=== PATIENT | male | born 1990 | race Caucasian/White ===

== ENCOUNTER 2020-05-02 18:52 | Emergency (ER) | payer OTHER ==
[2020-05-02] MEDS ORDERED: ONDANSETRON HCL 4 MG/2 ML VIAL ONE (19:29)
[2020-05-02] MEDS ORDERED: MORPHINE SULFATE 2 MG/ML 1ML SYG ONE (19:30)
[2020-05-02] MEDS ORDERED: SODIUM CHLORIDE 0.9% 1000ML 1,000 ML IV ONE (19:30)
[2020-05-02 19:46] LABS: BASOPHILS % (AUTO) 0.4 % (0.0-5.0); EOSINOPHILS % (AUTO) 0.1 % (0.0-8.0); LYMPHOCYTES % (AUTO) 8.1 % (21.0-51.0); MEAN CORPUSCULAR HEMOGLOBIN 32.9 pg (27.0-33.0); MEAN CORPUSCULAR VOLUME 94.1 fL (79-99); NEUTROPHILS % (AUTO) 86.1 % (40.0-77.0); PLATELET COUNT (AUTO) 262 K/uL (130-400); RED BLOOD CELL COUNT(AUTO) 4.89 MIL/uL (4.50-6.20); RED CELL DISTRIBUTION WIDTH 11.8 % (11.0-15.5); WHITE BLOOD COUNT (AUTO) 20.3 K/uL (4.8-10.8)
[2020-05-02] MEDS ORDERED: ZOSYN 3.375GM+NS 50ML 50 ML IV ONE (19:53)
[2020-05-02 20:20] LABS: CREATININE 1.2 mg/dL (0.5-1.5); POTASSIUM 3.7 mmol/L (3.5-5.1)
[2020-05-02 20:24] LABS: ALBUMIN 4.1 g/dL (3.5-5.0); BILIRUBIN,TOTAL 0.9 mg/dL (0.2-1.0); TOTAL PROTEIN, SERUM 8.1 g/dL (6.0-8.3)
== END 2020-05-03 01:24 | disposition short-term general hospital (02) ==
LOC: EDH 18:52
DX: K35.80 Unspecified acute appendicitis (principal); Z72.0 Tobacco use
CPT/HCPCS: 36415; 74176; 80053; 83690; 85025; 96365; 96366; 96375; 99285; J2405; J2543; J7030